=== PATIENT | female | born 1995 | race Caucasian/White ===

== ENCOUNTER 2019-01-15 22:33 | Emergency (ER) | payer SELFPAY ==
--- NOTE | 2019-01-15 23:24 | ED.PDOC ---
History of Present Illness - General Chief Complaint: ENT Problem Stated Complaint: sore throat, cough Time Seen by Provider: 01/15/19 23:07 Source: patient Exam Limitations: no limitations - History of Present Illness Initial Comments: Patient comes in with 3 day history of cough, congestion, sinus pressure and pain. Sore throat and chills but no fever. Some body aches. She has no n/v/d/c. She has no past medical history. Timing/Duration: other Severity: mild EENT Location: throat Prearrival Treatment: other - sinus irrigation Improving Factors: nothing Worsening Factors: nothing Associated Symptoms: cough, facial pain/swelling, sore throat Allergies/Adverse Reactions: Allergies Aspirin Allergy (Intermediate, Verified 10/14/15 20:57) Other States neck and face swells Home Medications: Ambulatory Orders Desogestrel & Ethinyl Estradio [Enskyce] 1 tab PO DAILY 01/16/16 Amoxicillin & Pot Clavulanate [Augmentin Tab] 875 mg PO BID #20 tab 01/15/19 Review of Systems - Review of Systems Constitutional: States: chills, malaise EENTM: States: nose congestion, throat pain Respiratory: States: cough. Denies: short of breath, wheezing Cardiology: States: no symptoms reported. Denies: chest pain Gastrointestinal/Abdominal: States: no symptoms reported. Denies: abdominal pain, nausea, vomiting Past Medical History (General) - Patient Medical History Hx Seizures: No Hx Stroke: No Hx Dementia: No Hx Asthma: Yes Hx of COPD: No Hx Cardiac Disorders: No Hx Congestive Heart Failure: No Hx Pacemaker: No Hx Hypertension: No Hx Thyroid Disease: No Hx Diabetes: No Hx Gastroesophageal Reflux: No Hx Renal Disease: No Hx of HIV: No Hx Hepatitis C: No Hx MRSA: No Surgical History: no surgical history - Vaccination History Hx Tetanus, Diphtheria Vaccination: Yes Hx Influenza Vaccination: No Hx Pneumococcal Vaccination: No Immunizations Up to Date: Yes - Social History Hx Tobacco Use: Yes Hx Chewing Tobacco Use: No Hx Alcohol Use: No Hx Substance Use: No Hx Substance Use Treatment: No Hx Depression: No Feels Threatened In Home Enviroment: No Feels Threatened In a Relationship: No Hx Physical Abuse: No Hx Emotional Abuse: No Hx Suspected Abuse: No - Female History Patient is a Female of Child Bearing Age (10 -59 yrs old): Yes Hx Last Menstrual Period: 08/09/15 Patient : No - has an IUD in place Expected Date of Delivery:: 12/19/12 Family Medical History - Family History Mother Family History: No Known Physical Exam - Physical Exam General Appearance: Alert, Comfortable, No apparent distress Eye Exam: bilateral normal Ear Exam: bilateral ear: auricle normal, canal normal, TM normal Nasal Exam: discharge, sinus tenderness - bilateral maxillary sinus tenderness Throat Exam: normal mouth inspection, other - 3+ tonsillar hypertrophy (per patient chronic) with white spots no exudate no erythema Neck: non-tender, full range of motion, supple Cardiovascular/Respiratory: regular rate, rhythm, no M/R/G, normal peripheral pulses Abdominal Exam: non-tender Neurologic: alert Progress - Results/Orders Results/Orders: 01/15/19 22:58 STREP A SCREEN CULTURE Stat Laboratory Results Group A Strep Rapid Negative (NEGATIVE) 01/15/19 22:58 influ A/B negative Departure - Departure Clinical Impression: Sinusitis Qualifiers: Sinusitis location: maxillary Chronicity: acute Recurrence: non-recurrent Qualified Code(s): J01.00 - Acute maxillary sinusitis, unspecified Disposition: Discharge to Home or Self Care Departure Forms: ED Discharge - Pt. Copy, Patient Portal Self Enrollment Instructions: DI for Ear Pain-Adult Prescriptions: Amoxicillin & Pot Clavulanate [Augmentin Tab] 875 mg PO BID #20 tab Home Medications: Ambulatory Orders Desogestrel & Ethinyl Estradio [Enskyce] 1 tab PO DAILY 01/16/16 Amoxicillin & Pot Clavulanate [Augmentin Tab] 875 mg PO BID #20 tab 01/15/19 Additional Instructions: otc sudafed and tylenol/motrin for pain
[2019-01-15 23:31] VITALS: BP 102/61; TEMP 98.3; O2SAT 98
== END 2019-01-15 23:34 | disposition home or self-care (01) ==
LOC: ER 22:33
DX: J01.00 Acute maxillary sinusitis, unspecified (principal); J45.909 Unspecified asthma, uncomplicated; Z87.891 Personal history of nicotine dependence; Z88.6 Allergy status to analgesic agent